=== PATIENT | female | born 1995 | race Caucasian/White ===

== ENCOUNTER 2020-11-24 14:19 | Emergency (ER) | payer OTHER, MEDICAID ==
[~2020-11-24] VITALS: Ht 162.6 cm; Wt 70.3 kg
[~2020-11-24 14:19] MED LIST: ACTICIN 5% CREA60 G1 TOP; ADDERALL XR 2525 MG PO; CALAMINE MEDIC TP; CLARITIN10 MG PO; HYDROCORTISONE TP; HYDROXYZINE HCL25 M1 PO; IBUPROFEN 400400 M2 PO; MEDROLDOSEPACK PO; NOHOMEMEDICATIONS; NORCO 5-325 TA1 EAC1 PO; PENICILLIN VK500 M1 PO; VISTARIL 25 MG25 M1 PO; ZANTAC 150MG T150 MG PO; ZANTAC 7575 MG PO
[2020-11-24 15:14] VITALS: BP 133/79
--- NOTE | 2020-11-24 16:06 | EKG ---
[place] [address] ELECTROCARDIOGRAM REPORT Name: HENRY VILLEGAS Room: [facility]#: [id number] Admission: 11/24/20 Attend Phys: Discharge: 11/24/20 Date of : 89 Date of Service: 11/24/20 1423 Report #: [id number] THIS REPORT FOR: //name// [facility] ED Test Date: 2020-11-24 Test Time: 14:23:50 Pat Name: HENRY VILLEGAS Department: Room: Gender: F Cashier Supervisor: : 1995 Requested By: Hilario Hutson Order Number: [id number] Frances MD: Tal Law Measurements Intervals Salome Rate: 108 P: 66 [place]: 138 QRS: 61 QRSD: 77 T: 31 QT: 333 QTc: 447 Interpretive Statements Sinus tachycardia Probable left atrial enlargement No previous ECG available for comparison Electronically Signed On 11-24-2020 16:06:21 CDT by Tal Law [email or web address] <ELECTRONICALLY SIGNED> By: Tal Law MD, [facility] 11/24/20 1606 1423 142 Tal Law MD, FACC /EPI
== END 2020-11-24 15:16 | disposition short-term general hospital (02) ==
LOC: M.ERS 14:19
DX: O60.10X0 Preterm labor with preterm delivery, unspecified trimester, not applicable or unspecified (principal); O99.333 Smoking (tobacco) complicating pregnancy, third trimester; Z3A.34 34 weeks gestation of pregnancy